=== PATIENT | male | born 1990 | race Caucasian/White ===

== ENCOUNTER 2020-05-29 19:43 | Emergency (ER) | payer OTHER ==
[2020-05-29 20:27] VITALS: BMI 22.1
[2020-05-29 22:28] LABS: BASO % 0.1 % (0-2.0); HEMATOCRIT 40.4 % (35.4-49); HEMOGLOBIN 14.5 GM/dL (11.7-16.9); LYMPH % 30.6 % (8-40); MCH 29.3 pg (25.7-33.7); MCHC 35.8 g/dl (32.0-35.9); MEAN CELL VOLUME 81.8 fl (80-96); MEAN PLT VOLUME 7.9 fl (7.5-11.1); MONO % 9.1 % (3.8-10.2); NEUT % 60.2 % (42.8-82.8); PLATELET COUNT 240 K/MM3 (134-434); RBC 4.95 M/mm3 (4.00-5.60); RDW 13.8 % (11.9-15.9); WHITE BLOOD COUNT 5.5 K/mm3 (4.0-10.0)
[2020-05-29 22:52] LABS: CHLORIDE 108 mmol/L (98-107); POTASSIUM 3.7 mmol/L (3.5-5.1); SODIUM 141 mmol/L (136-145)
[2020-05-29 22:54] LABS: ANION GAP 8 MMOL/L (8-16); BLOOD UREA NITROGEN 11.9 mg/dL (7-18); CO2 26 mmol/L (21-32); GLUCOSE,RANDOM 88 mg/dL (74-106)
[2020-05-30 06:07] LABS: OPIATES, URI NEGATIVE ng/ml (CUTOFF=300); PHENCYCLIDINE,URINE NEGATIVE ng/ml (CUTOFF=25); URINE AMPHETAMINES NEGATIVE ng/ml (CUTOFF=500); URINE BENZODIAZEPINES NEGATIVE ng/ml (CUTOFF=200)
[2020-05-30 06:08] LABS: METHADONE, UR NEGATIVE ng/ml (CUTOFF=300)
[2020-05-30 06:12] LABS: COCAINE, UR NEGATIVE ng/ml (CUTOFF=300); URINE BARBITURATES NEGATIVE ng/ml (CUTOFF=200)
[2020-05-31 06:33] VITALS: PULSE 81; TEMP 98.1
[2020-05-31 08:50] VITALS: BP 117/71
== END 2020-05-31 08:50 | disposition short-term general hospital (02) ==
LOC: JER 19:43
DX: F20.2 Catatonic schizophrenia (principal)
CPT/HCPCS: 36415; 71045-TC-FY; 80048; 80307; 84443; 85025; 93005; 93010; 99285-25; C9803; U0003